=== PATIENT | female | born 1945 | race Caucasian/White ===

== ENCOUNTER 2017-04-08 15:55 | Inpatient (IN) | payer OTHER ==
[~2017-04-08] VITALS: Ht 165.1 cm; Wt 57.8 kg
[2017-04-08 18:07] LABS: BASOPHIL % 0.5 % (0-2); PLATELET COUNT 258 x10^3mcL (130-400)
[2017-04-08 18:18] LABS: RED CELL DISTRIBUTION WIDTH 17.7 % (11.5-14.5)
[2017-04-08 18:21] LABS: CALCIUM 9.5 mg/dL (8.5-10.1); CARBON DIOXIDE 29.2 mmol/L (21-32); CHLORIDE SERUM 95 mmol/L (98-107); CREATININE SERUM 1.2 mg/dL (0.6-1.0); GLUCOSE SERUM 74 mg/dL (74-106); POTASSIUM SERUM 3.7 mmol/L (3.5-5.1); SODIUM SERUM 137 mmol/L (136-145)
[2017-04-08 18:23] LABS: UA SPECIFIC GRAVITY >=1.030 (1.005-1.035); microscopic required? YES; urine erythrocyte TRACE (NEGATIVE)
[2017-04-08 18:34] LABS: ALKALINE PHOSPHATASE 63 U/L (46-116); ALT/SGPT 10 U/L (14-59); AMYLASE 36 U/L (25-115); AST/SGOT 27 U/L (15-37); BILIRUBIN TOTAL 0.52 mg/dL (0.20-1.00); LIPASE 64 IU/L (73-393); T4(THYROXINE) 8.5 ug/dL (4.7-13.3); TOTAL PROTEIN, SERUM 6.5 g/dL (6.4-8.2)
[2017-04-08 18:35] LABS: ALBUMIN 3.1 g/dL (3.4-5.0)
[2017-04-09 01:12] VITALS: BP 149/75
[2017-04-09 01:20] VITALS: BP 149/75
[2017-04-09] MEDS ORDERED: TEMAZEPAM15 MG PO (01:26)
[2017-04-09] MEDS ORDERED: LEVOTHYROXINE0.1 M2 PO (01:26)
[2017-04-09] MEDS ORDERED: KLOR-CON 88 MEQ PO (01:26)
[2017-04-09 01:41] LABS: MAGNESIUM 1.9 mg/dL (1.8-2.4); PHOSPHOROUS 3.3 mg/dL (2.5-4.9)
[2017-04-09 01:44] LABS: CHOLESTEROL/HDL RATIO 1.9
[2017-04-09 02:02] LABS: FREE T4 1.2 ng/dL (0.76-1.46)
[2017-04-09 02:58] LABS: IRON 19 ug/dL (50-170); TOTAL IRON BINDING CAPACITY 189 ug/dL (250-450)
[2017-04-09 03:24] LABS: T3 TOTAL 0.63 ng/mL
[2017-04-09 05:55] VITALS: BP 137/65
[2017-04-09 05:58] LABS: BASOPHIL % 0.3 % (0-2); PLATELET COUNT 249 x10^3mcL (130-400)
[2017-04-09 06:09] LABS: RED CELL DISTRIBUTION WIDTH 17.7 % (11.5-14.5)
[2017-04-09 07:10] LABS: RED BLOOD CELLS 3.34 M/mm3 (4.10-5.10)
[2017-04-09 08:13] LABS: CALCIUM 9.1 mg/dL (8.5-10.1); CARBON DIOXIDE 29.2 mmol/L (21-32); CHLORIDE SERUM 97 mmol/L (98-107); GLUCOSE SERUM 88 mg/dL (74-106); MAGNESIUM 1.7 mg/dL (1.8-2.4); PHOSPHOROUS 2.7 mg/dL (2.5-4.9); POTASSIUM SERUM 3.8 mmol/L (3.5-5.1); SODIUM SERUM 136 mmol/L (136-145)
[2017-04-09 17:01] VITALS: BP 146/75
[2017-04-09 20:49] VITALS: BP 118/64
[2017-04-10 05:35] VITALS: BP 125/70
[2017-04-10 07:14] LABS: CALCIUM 9.2 mg/dL (8.5-10.1); CARBON DIOXIDE 29.8 mmol/L (21-32); CHLORIDE SERUM 98 mmol/L (98-107); GLUCOSE SERUM 101 mg/dL (74-106); MAGNESIUM 1.8 mg/dL (1.8-2.4); POTASSIUM SERUM 3.7 mmol/L (3.5-5.1); SODIUM SERUM 142 mmol/L (136-145)
[2017-04-10 07:22] LABS: BASOPHIL % 0.4 % (0-2); PLATELET COUNT 270 x10^3mcL (130-400)
[2017-04-10 08:50] VITALS: BP 134/72
[2017-04-10 12:52] VITALS: BP 135/66
[2017-04-10 17:40] VITALS: BP 115/58
[2017-04-10 22:20] VITALS: BP 126/65
[2017-04-11 05:11] VITALS: BP 151/72
[2017-04-11 06:28] LABS: BASOPHIL % 0.5 % (0-2); PLATELET COUNT 192 x10^3mcL (130-400)
[2017-04-11 06:39] LABS: RED CELL DISTRIBUTION WIDTH 18.1 % (11.5-14.5)
[2017-04-11 06:41] LABS: CALCIUM 8.8 mg/dL (8.5-10.1); CHLORIDE SERUM 102 mmol/L (98-107); CREATININE SERUM 0.8 mg/dL (0.6-1.0); GLUCOSE SERUM 75 mg/dL (74-106); POTASSIUM SERUM 3.2 mmol/L (3.5-5.1); SODIUM SERUM 139 mmol/L (136-145)
[2017-04-11 09:00] VITALS: BP 113/48
[2017-04-11 17:11] VITALS: BP 135/61
[2017-04-11 20:11] VITALS: BP 119/62
[2017-04-12 05:58] VITALS: BP 123/58
[2017-04-12 06:49] LABS: BASOPHIL % 0.3 % (0-2); PLATELET COUNT 231 x10^3mcL (130-400)
[2017-04-12 07:03] LABS: CALCIUM 9.2 mg/dL (8.5-10.1); CARBON DIOXIDE 28.6 mmol/L (21-32); CHLORIDE SERUM 103 mmol/L (98-107); CREATININE SERUM 0.8 mg/dL (0.6-1.0); GLUCOSE SERUM 86 mg/dL (74-106); POTASSIUM SERUM 4.7 mmol/L (3.5-5.1); SODIUM SERUM 132 mmol/L (136-145)
[2017-04-12 07:08] LABS: RED CELL DISTRIBUTION WIDTH 17.9 % (11.5-14.5)
[2017-04-12 09:59] VITALS: BP 136/57
[2017-04-12 13:30] VITALS: BP 117/63
[2017-04-12 17:08] VITALS: BP 143/65
[2017-04-12 19:04] VITALS: Ht 165.1 cm; Wt 57.8 kg
[2017-04-12 20:21] VITALS: BP 134/64
[2017-04-13 05:21] VITALS: BP 140/69
[2017-04-13 07:25] LABS: CALCIUM 8.8 mg/dL (8.5-10.1); CARBON DIOXIDE 30.3 mmol/L (21-32); CHLORIDE SERUM 105 mmol/L (98-107); CREATININE SERUM 0.7 mg/dL (0.6-1.0); GLUCOSE SERUM 71 mg/dL (74-106); SODIUM SERUM 143 mmol/L (136-145)
[2017-04-13 07:31] LABS: BASOPHIL % 0.2 % (0-2); PLATELET COUNT 208 x10^3mcL (130-400); RED CELL DISTRIBUTION WIDTH 17.7 % (11.5-14.5)
[2017-04-13 08:41] VITALS: BP 147/65
[2017-04-13 11:57] LABS: UA SPECIFIC GRAVITY >=1.030 (1.005-1.035); microscopic required? YES; urine erythrocyte TRACE (NEGATIVE)
[2017-04-13 12:32] VITALS: BP 135/61
[2017-04-13 17:34] VITALS: BP 141/67
[2017-04-13 21:05] VITALS: BP 127/58
[2017-04-14 05:18] VITALS: BP 125/56
[2017-04-14 09:38] VITALS: BP 121/62
[2017-04-14 13:38] VITALS: BP 138/68
[2017-04-14 18:12] VITALS: BP 135/85
[2017-04-14 20:09] VITALS: BP 127/61
[2017-04-15 04:51] VITALS: BP 123/58
[2017-04-15 08:15] VITALS: BP 125/71
[2017-04-15 11:42] VITALS: BP 131/70
[2017-04-15 17:00] VITALS: BP 126/60
[2017-04-15 20:55] VITALS: BP 136/60
[2017-04-16 04:55] VITALS: BP 117/54
[2017-04-16 06:43] LABS: BASOPHIL % 0.2 % (0-2); PLATELET COUNT 247 x10^3mcL (130-400); RED CELL DISTRIBUTION WIDTH 17.3 % (11.5-14.5)
[2017-04-16 07:01] LABS: CALCIUM 8.1 mg/dL (8.5-10.1); CARBON DIOXIDE 24.5 mmol/L (21-32); CHLORIDE SERUM 105 mmol/L (98-107); CREATININE SERUM 0.6 mg/dL (0.6-1.0); SODIUM SERUM 141 mmol/L (136-145)
[2017-04-16 07:25] LABS: GLUCOSE SERUM 54 mg/dL (74-106); POTASSIUM SERUM 2.5 mmol/L (3.5-5.1)
[2017-04-16 09:31] VITALS: BP 139/67
[2017-04-16 14:31] LABS: BASOPHIL % 0.4 % (0-2); PLATELET COUNT 243 x10^3mcL (130-400)
[2017-04-16 15:52] LABS: CALCIUM 8.6 mg/dL (8.5-10.1); CARBON DIOXIDE 28.5 mmol/L (21-32); CHLORIDE SERUM 105 mmol/L (98-107); CREATININE SERUM 0.6 mg/dL (0.6-1.0); GLUCOSE SERUM 108 mg/dL (74-106); POTASSIUM SERUM 3.5 mmol/L (3.5-5.1); SODIUM SERUM 141 mmol/L (136-145)
[2017-04-16] MEDS ORDERED: ROXD PO (15:58)
[2017-04-16 16:39] VITALS: BP 123/62
[2017-04-16 20:55] VITALS: BP 126/60
[2017-04-17] MEDS ORDERED: KLOR-CON 88 MEQ PO (06:14)
[2017-04-17 06:15] VITALS: BP 126/64
[2017-04-17] MEDS ORDERED: ALD25 PO (06:25)
[2017-04-17] MEDS ORDERED: K10 PO (06:26)
[2017-04-17] MEDS ORDERED: HEARTBURN TREAT15 MG PO (09:43)
[2017-04-17 09:56] VITALS: BP 126/64
[2017-04-17 10:02] VITALS: BP 139/62
[2017-04-17 12:54] VITALS: BP 129/60
[2017-04-17] MEDS ORDERED: IMO2 PO (13:35)
== END 2017-04-17 14:58 | disposition hospice, home (50) | DRG 329 ==
LOC: ED 15:55 → DU 04-09 00:13 → MU 04-14 11:11 → DU 04-16 09:32 → MU 04-17 08:01
PROVIDERS: Emergency Medicine; Family Medicine; Surgery
PROC: 0D1B0Z4 Bypass Ileum to Cutaneous, Open Approach (ICD-10-PCS; principal; 2017-04-11 12:15)
DX: C18.2 Malignant neoplasm of ascending colon (principal); N17.0 Acute kidney failure with tubular necrosis; E44.0 Moderate protein-calorie malnutrition; R64 Cachexia; C78.01 Secondary malignant neoplasm of right lung; C78.02 Secondary malignant neoplasm of left lung; Z68.1 Body mass index [BMI] 19.9 or less, adult; K56.699 Other intestinal obstruction unspecified as to partial versus complete obstruction; E87.6 Hypokalemia; E83.42 Hypomagnesemia; D64.9 Anemia, unspecified; E03.9 Hypothyroidism, unspecified; Z66 Do not resuscitate; Z51.5 Encounter for palliative care; Z92.21 Personal history of antineoplastic chemotherapy
CPT/HCPCS: 82962; 83880; 84439; 94150; 97110-GP; 97116-GP; 97530-GP; J0330; J1170; J1644; J2250; J2270; J2405; J2704; J2710; J3010; J3480; J3490; J7030; J7042; J7120; Q0092; Q9966; Q9967